=== PATIENT | male | born 1970 | race Caucasian/White ===

== ENCOUNTER 2018-06-28 13:38 | Inpatient (IN) | payer BC ==
[~2018-06-28] VITALS: Ht 175.3 cm; Wt 96.6 kg
[2018-06-28 13:45] VITALS: BP 137/72
[2018-06-28 14:13] LABS: BASOPHILS % (AUTO) 0 % (0-10); EOSINOPHILS # (AUTO) 0.1 10^3/uL (0.0-0.3); EOSINOPHILS % (AUTO) 1 % (0-10); HEMATOCRIT 38 % (40-54); HEMOGLOBIN 13.1 G/DL (13.3-17.7); LYMPHOCYTES % (AUTO) 9 % (12-44); MEAN CORPUSCULAR HEMOGLOBIN 31 PG (25-34); MEAN CORPUSCULAR HGB CONC 34 G/DL (32-36); MEAN CORPUSCULAR VOLUME 90 FL (80-99); MEAN PLATELET VOLUME 9.1 FL (7.4-10.4); MONOCYTES # (AUTO) 1.1 X 10^3 (0.0-1.0); MONOCYTES % (AUTO) 9 % (0-12); NEUTROPHILS # (AUTO) 9.8 X 10^3 (1.8-7.8); NEUTROPHILS % (AUTO) 82 % (42-75); PLATELET COUNT 215 10^3/uL (130-400); RED BLOOD COUNT 4.26 10^6/uL (4.35-5.85)
[2018-06-28] MEDS ORDERED: CATHETER FLUSH 10 ML SYR IV PRN (14:15)
[2018-06-28] MEDS ORDERED: D5 LR IV SOLUTION 1,000 ML IV SCH (14:15)
[2018-06-28] MEDS ORDERED: ONDANSETRON 4 MG/2 ML (SDV) Z0FRAN IV PRN (14:15)
[2018-06-28] MEDS ORDERED: morphine INJ 10 MG/ML 1ML (SYR OR VIAL) IVP NR (14:30)
[2018-06-28 14:36] LABS: ALANINE AMINOTRANSFERASE 24 U/L (0-55); ALBUMIN 4.2 GM/DL (3.2-4.5); ALKALINE PHOSPHATASE 39 U/L (40-136); BILIRUBIN,TOTAL 0.9 MG/DL (0.1-1.0); BUN/CREATININE RATIO 13; CALCIUM 9.2 MG/DL (8.5-10.1); CARBON DIOXIDE 27 MMOL/L (21-32); CHLORIDE 104 MMOL/L (98-107); CREATININE SERUM 1.18 MG/DL (0.60-1.30); GFR ESTIMATED > 60; GLUCOSE 115 MG/DL (70-105); POTASSIUM 3.8 MMOL/L (3.6-5.0); SODIUM 139 MMOL/L (135-145); TOTAL PROTEIN 6.2 GM/DL (6.4-8.2)
[2018-06-28] MEDS ORDERED: GUAI600T43 PO (15:11)
[2018-06-28] MEDS ORDERED: INDO75CA3 PO (15:11)
[2018-06-28] MEDS ORDERED: IRBE300T18 PO (15:11)
[2018-06-28] MEDS ORDERED: PSEU30TA35 PO (15:11)
[2018-06-28] MEDS ORDERED: SILD100T PO (15:11)
[2018-06-28] MEDS ORDERED: FLUT16SP22 NS (15:11)
[2018-06-28] MEDS ORDERED: ATOR80TA76 PO (15:14)
[2018-06-28] MEDS ORDERED: ASPI-983 PO (15:14)
[2018-06-28] MEDS ORDERED: NUGENIX PO (15:17)
--- NOTE | 2018-06-28 15:29 | Diagnostic Imaging Report ---
PROCEDURE: CT abdomen and pelvis with contrast, rule out appendicitis. TECHNIQUE: Multiple contiguous axial images were obtained through the abdomen and pelvis after the administration of intravenous contrast. INDICATION: Right lower quadrant pain. FINDINGS: The appendix arises off the posterior margin of the caudal pole of the cecum and is then oriented inferiorly. It is irregular and there is periappendiceal edema. No abscess or drainable fluid collection. There is a trace amount of pelvic free fluid at the midline dependent pelvis. Appendiceal diameter is maximal 15 mm at a level where its jean are not clearly defined. While no free air or extraluminal gas can be identified, its perforation could not be excluded. The urinary tracts are unobstructed. Mild hepatic steatosis noted. The gallbladder, bile ducts, spleen, adrenals, and pancreas are all negative. There is a small hiatal hernia. There is no bowel obstruction. IMPRESSION: Findings most consistent with appendicitis with trace pelvic free fluid. No loculated collection or drainable abscess. The dilated appendix shows ill definition of its jean at the level of maximal distention and mural integrity could not be confirmed. Again, no free air could be identified however. No resultant bowel obstruction. Remaining structures nonacute. Dictated by: Dictated on workstation # [id number]
[2018-06-28 16:00] VITALS: BP 107/61
[2018-06-28] MEDS ORDERED: morphine INJ 4 MG/ML 1 ML (VIAL/SYRINGE) IVP PRN (16:45)
--- NOTE | 2018-06-28 16:48 | History & Physical-Hospitalist ---
History of Present Illness HPI/Chief Complaint Mr. Salas is a 47-year-old white male who was woken from sleep with periumbilical crampy abdominal pain around 330 a.m. He had some associated nausea. He was quite uncomfortable secondary to this discomfort which she reported then gravitated toward the right lower quadrant has some morning went on. He had no vomiting but did feel quite nauseated at times. He did have several formed stools without liquid blood bright red or melena with only minimal relief in his symptoms. He was in the office where he appeared to be in acute distress secondary to his abdominal discomfort. He's had no past history of appendicitis or appendectomy. He denied any associated flank pain. Did note some increasing urinary frequency without dysuria. He had been feeling well in his usual state of good health up until being awoken from sleep this morning. Date Seen 06/28/18 Time Seen by Provider: 12:00 Attending Physician Bright Lincoln MD PCP Bright Lincoln MD Referring Physician Date of Admission Jun 28, 2018 at 13:45 Home Medications & Allergies Home Medications Reviewed patient Home Medication Reconciliation performed by pharmacy medication reconciliations ear mold laboratory technician and/or nursing. Patients Allergies have been reviewed. Allergies Allergies Coded Allergies No Known Drug Allergies (Unverified06/28/18) Past Uxeaafk-Gjbdav-Xrobau Hx Past Med/Social Hx: Reviewed and Corrections made Patient Social History Marrital Status: Employed/Student: employed Alcohol Use: Occasionally Uses Alcohol Beverage of Choice: [place] Recreational Drug Use: No Smoking Status: Never a Smoker Physical Abuse Screen: No Sexual Abuse: No Recent Hopitalizations: No Immunizations Up To Date Date of Pneumonia Vaccine: Jul 23, 2011 Seasonal Allergies Seasonal Allergies: No Past Medical History History of Blood Disorders: No Family History Myocardial infarction 19 FATHER SINUS CANCER 19 MOTHER Review of Systems Constitutional: see HPI, chills; No diaphoresis, No dizziness, No fever, No malaise, No weakness, No weight gain, No weight loss, No other Cardiovascular: No chest pain, No edema, No Hx of Intervention, No palpitations , No syncope, No vascular heart diseas, No other Gastrointestinal: see HPI Genitourinary: see HPI Physical Exam Physical Exam Vital Signs Vital Signs - First Documented 06/28/18 13:45 Temp 99.6 Pulse 80 Resp 18 B/P (MAP) 137/72 (93) Pulse Ox 98 O2 Delivery Room Air Capillary Refill : Height, Weight, BMI Height: 5'9.00" Weight: 213lbs. 0.7oz. 96.851698um; 31.5 BMI Method: General Appearance: WD/WN, Moderate Distress HEENT: PERRL/EOMI, Normal ENT Inspection Neck: Full Range of Motion, Normal Inspection, Non Tender, Supple, Carotid Bruit Respiratory: Chest Non Tender, Lungs Clear, Normal Breath Sounds, No Accessory Muscle Use, No Respiratory Distress Cardiovascular: Regular Rate, Rhythm, No Edema, No Gallop, No JVD, No Murmur, Normal Peripheral Pulses Gastrointestinal: Soft, Distended (Mild), Guarding (Right lower quadrant), Other (Abdomen soft mildly distended bowel sounds present but hypoactive no mass or organomegaly noted no rebound but there is right lower quadrant guarding to palpation.) Extremity: Normal Inspection, Normal Range of Motion, Non Tender, No Pedal Edema Neurologic/Psychiatric: Alert, Oriented x3 Results Results/Procedures Labs Laboratory Tests 06/28/18 14:10 Patient resulted labs reviewed. Assessment/Plan Admission Diagnosis A/P 1. History of physical examination highly suspicious for acute appendicitis. Discussed my concerns with Dr. Aguilar and the patient is being admitted for CT scan of the abdomen and pelvis per acute appendicitis protocol. Will initiate IV fluids and obtain a CBC and a chemistry panel with when necessary anti-medic's and pain medication per Dr. Aguilar after his evaluation. Admission Status: Inpatient Order (span 2 midnights) Reason for Inpatient Admission: See admission diagnosis Clinical Quality Measures DVT/VTE Risk/Contraindication: Risk Factor Score Per Nursin RFS Level Per Nursing on Admit: 2=Moderate BRIGHT LINCOLN MD Jun 28, 2018 16:48
--- NOTE | 2018-06-28 16:57 | Consultation ---
History of Present Illness History of Present Illness Patient Consulted On(elpidio/time) 06/28/18 16:51 Time Seen by Provider: 16:03 History of Present Illness Surgery asked to consult regarding possible appendicitis. HPI per IM: Mr. Salas is a 47-year-old white male who was woken from sleep with periumbilical crampy abdominal pain around 330 a.m. He had some associated nausea. He was quite uncomfortable secondary to this discomfort which she reported then gravitated toward the right lower quadrant has some morning went on. He had no vomiting but did feel quite nauseated at times. He did have several formed stools without liquid blood bright red or melena with only minimal relief in his symptoms. He was in the office where he appeared to be in acute distress secondary to his abdominal discomfort. He's had no past history of appendicitis or appendectomy. He denied any associated flank pain. Did note some increasing urinary frequency without dysuria. He had been feeling well in his usual state of good health up until being awoken from sleep this morning. Pt states pain is a 4 out of 10, now after pain meds, but was 7-8 out of 10 at its worst. He describes pain as sharp and crampy, worse with movement. Allergies and Home Medications Allergies Coded Allergies: No Known Drug Allergies (Unverified , 06/28/18) Home Medications Aspirin 81 Mg Tablet.dr, 81 MG PO DAILY, (Reported) Atorvastatin Calcium 80 Mg Tablet, 80 MG PO DAILY, (Reported) Fluticasone Propionate 16 Gm [place].susp, 1 SPRAYS NS BID, (Reported) Guaifenesin 600 Mg Tab.er.12h, 600 MG PO BID PRN for CONGESTION, (Reported) Indomethacin 75 Mg Capsule.er, 75 MG PO DAILY, (Reported) Irbesartan 300 Mg Tablet, 300 MG PO DAILY, (Reported) Sildenafil Citrate 100 Mg Tablet, 50-100 MG PO UD PRN for ED, (Reported) [Nugenix] , 4 CAP PO DAILY, (Reported) Patient Home Medication List Home Medication List Reviewed: Yes Past Cfdopbd-Fzvbbk-Tgvmvf Hx Patient Social History Alcohol Use: Occasionally Uses Recreational Drug Use: No Smoking Status: Never a Smoker Recent Hopitalizations: No Physical Abuse Screen: No Sexual Abuse: No Immunizations Up To Date Date of Pneumonia Vaccine: Jul 23, 2011 Seasonal Allergies Seasonal Allergies: No Surgeries History of Surgeries: Yes Surgeries: Orthopedic (2 shoulder surgeries) Respiratory Respiratory Disorders: Pneumonia Cardiovascular History of Cardiac Disorders: No Neurological History of Neurological Disord: No Reproductive System Hx Reproductive Disorders: No Sexually Transmitted Disease: No HIV/AIDS: No Genitourinary History of Genitourinary Disor: No Gastrointestinal History of Gastrointestinal Di: No Musculoskeletal History of Musculoskeletal Dis: Yes Endocrine History of Endocrine Disorders: No HEENT History of HEENT Disorders: Yes (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 ") Loss of Vision: Left Hearing Impairment: Denies Cancer History of Cancer: No Psychosocial History of Psychiatric Problem: No Integumentary History of Skin or Integumenta: No Blood Transfusions History of Blood Disorders: Yes (pt was told he has "thick" blood, currently being worked up by Auditing Coder) Family Medical History Significant Family History: Heart Disease, Cancer Family Medial History: Myocardial infarction 19 FATHER SINUS CANCER 19 MOTHER Review of Systems-General Constitutional: chills, diaphoresis, weakness EENTM: blurred vision; No hearing loss, No mouth pain, No mouth swelling, No epistaxis, No throat swelling Respiratory: No cough, No dyspnea on exertion, No hemoptysis Cardiovascular: No chest pain, No edema, No palpitations Gastrointestinal: abdominal pain (RLQ); No diarrhea, No hematemesis, No melena ; nausea, vomiting Genitourinary: No dysuria, No frequency, No hematuria Musculoskeletal: No back pain, No joint pain, No muscle stiffness Skin: No change in color, No change in hair/nails Psychiatric/Neurological: Denies Anxiety, Denies Depressed, Denies Seizure, Denies Tremors Other pt denies any abnormal bruising or bleeding, but recently has been told he may have a clotting disorder. Denies any heat or cold intolerance Physical Exam-General Problems Physical Exam Vital Signs Vital Signs - First Documented 06/28/18 13:45 Temp 99.6 Pulse 80 Resp 18 B/P (MAP) 137/72 (93) Pulse Ox 98 O2 Delivery Room Air Capillary Refill : General Appearance: WD/WN, mild distress Eyes: Bilateral Eye PERRL, Bilateral Eye EOMI HEENT: pharynx normal; No scleral icterus (R), No scleral icterus (L), No pale conjunctivae (R), No pale conjunctivae (L) Neck: non-tender, full range of motion, supple, normal inspection Respiratory: chest non-tender, lungs clear, normal breath sounds, no respiratory distress, no accessory muscle use Cardiovascular: regular rate, rhythm, no edema, no murmur Gastrointestinal: normal bowel sounds, soft, no organomegaly, guarding ( voluntary to deep palpation), tenderness (RLQ) Rectal: deferred Back: no CVA tenderness, no vertebral tenderness Extremities: normal range of motion, non-tender, normal inspection, no pedal edema, no calf tenderness Neurologic/Psychiatric: bioinformatics software engineer II-XII nml as tested, no motor/sensory deficits, alert, normal mood/affect, oriented x 3 Skin: normal color, warm/dry Lymphatic: no adenopathy (neck, axilla or groin) Data Review Labs Laboratory Tests 06/28/18 14:10: White Blood Count 12.0H, Red Blood Count 4.26L, Hemoglobin 13.1L, Hematocrit 38L , Mean Corpuscular Volume 90, Mean Corpuscular Hemoglobin 31, Mean Corpuscular Hemoglobin Concent 34, Red Cell Distribution Width 13.0, Platelet Count 215, Mean Platelet Volume 9.1, Neutrophils (%) (Auto) 82H, Lymphocytes (%) (Auto) 9L , Monocytes (%) (Auto) 9, Eosinophils (%) (Auto) 1, Basophils (%) (Auto) 0, Neutrophils # (Auto) 9.8H, Lymphocytes # (Auto) 1.0, Monocytes # (Auto) 1.1H, Eosinophils # (Auto) 0.1, Basophils # (Auto) 0.0, Sodium Level 139, Potassium Level 3.8, Chloride Level 104, Carbon Dioxide Level 27, Anion Gap 8, Blood Urea Nitrogen 15, Creatinine 1.18, Estimat Glomerular Filtration Rate > 60, BUN/ Creatinine Ratio 13, Glucose Level 115H, Calcium Level 9.2, Corrected Calcium 9.0, Total Bilirubin 0.9, Aspartate Amino Transf (AST/SGOT) 18, Alanine Aminotransferase (ALT/SGPT) 24, Alkaline Phosphatase 39L, Total Protein 6.2L, Albumin 4.2 Assessment/Plan Assessment/Plan Assessment/Plan Acute appendicitis Plan is IV fluids, pain control, anti-emetics and will take pt to OR. CT read by radiologist as acute appendicitis. Discussed the surgery with the pt; risks and complications not limited to pain, bleeding, infection, scar, damage to bowel and need for further procedure. I also discussed with the pt and his that if he does in fact have a clotting disorder he will be at increased risk to CVT and/or embolism because of the surgery. However, he does have to have the surgery. I had to evaluate pt and then explain risks of surgery to pt. Clinical Quality Measures DVT/VTE Risk/Contraindication: Risk Factor Score Per Nursin RFS Level Per Nursing on Admit: 2=Moderate KELLY HANLEY DO Jun 28, 2018 16:57
[2018-06-28] MEDS ORDERED: LIDOCAINE/EPI 1%-1:200,000 (XYLOCAINE) 10 ML VIAL ONE (17:27)
[2018-06-28] MEDS ORDERED: proPOfol 200 MG/20 ML (DIPRIVAN) VIAL IV ONE (17:29)
[2018-06-28] MEDS ORDERED: LIDOCAINE PF 2% 5 ML (XYLOCAINE) VIAL ONE (17:29)
[2018-06-28] MEDS ORDERED: SEVOFLURANE (ULTANE) 15 ML INHAL SOLN ONE ×2 (17:29→18:36)
[2018-06-28] MEDS ORDERED: LACTATED RINGERS 1,000 ML IV ONE (17:29)
[2018-06-28] MEDS ORDERED: ROCURONIUM 10 MG/ML 5 ML SYRINGE IV ONE (17:29)
[2018-06-28] MEDS ORDERED: MIDAZOLAM 2 MG/2 ML (VERSED) VIAL ONE (17:29)
[2018-06-28] MEDS ORDERED: fentaNYL INJECTION 100 MCG/2 ML AMP ONE (17:29)
[2018-06-28] MEDS ORDERED: ceFAZolin 2 GM IV Premixed 50 ML IV NR (17:45)
[2018-06-28] MEDS ORDERED: LACTATED RINGERS 1,000 ML IV PRN (18:13)
[2018-06-28] MEDS ORDERED: HYDROmorphone 2 MG/ML VIAL (DILAUDID) IV ONE (18:15)
[2018-06-28] MEDS ORDERED: ONDANSETRON 4 MG/2 ML (SDV) Z0FRAN IVP PRN (18:15)
[2018-06-28] MEDS ORDERED: MEPERIDINE (DEMEROL) INJ 50 MG/ML IVP ONE (18:15)
[2018-06-28] MEDS ORDERED: morphine INJ 10 MG/ML 1ML (SYR OR VIAL) IVP ONE (18:15)
[2018-06-28] MEDS ORDERED: NEOSTIGMINE 1 MG/ML 5 ML SYRINGE ONE (18:21)
[2018-06-28] MEDS ORDERED: GLYCOPYRROLATE 0.2 MG/ML (ROBINUL) 2 ML VIAL ONE (18:21)
--- NOTE | 2018-06-28 18:40 | Progress Note-Post Operative ---
Post-Operative Progess Note Surgeon (s)/Make Up Operator (s) Surgeon KELLY HANLEY DO Make Up Operator: Ross Jiménez MSIII Pre-Operative Diagnosis Acute appy Post-Operative Diagnosis Same plus b/l IH Procedure & Operative Findings Date of Procedure 06/28/18 Procedure Performed/Findings Lap Appy Anesthesia Type GET Estimated Blood Loss Estimated blood loss (mL): scant Specimens/Packing Specimens Removed KELLY Oconnor DO Jun 28, 2018 18:40
[2018-06-28] MEDS ORDERED: HYDR-3820 PO (18:41)
--- NOTE | 2018-06-28 18:43 | Discharge Inst-Surgical ---
Discharge Inst-Surgical Depart Medication/Instructions New, Converted or Re-Newed RX: RX Given to Pt/Family Patient Instructions Follow up Appt: Make appointment for 1 week. Instructions: No lifting greater than 10 pounds. No strenuous activity. May shower in 24 hours, no tub bath or soaking. Use incentive spirometer at home as directed. No Smoking Skin/Wound Care: May remove bandages in am. You need to leave the Dermabond on over incision it will fall off on its own. Symptoms to Report: Appetite Changes, Extremity Discoloration, Numbness/Tingling, Swelling Increased , Bleeding Excessive, Eyesight Changes, Pain Increased, Urine Color Change, Constipation(Persistent), Fever over 101 degree F, Pain/Pressure in chest, Urinating Difficulty, Cough Up/Vomit Blood, Heart Beat Irreg/Pounding, Pain/ Pressure in jaw, Cramps in feet or legs, Lightheadedness, Pain/Pressure in shoulder, Diarrhea(Persistent), Memory Changes Suddenly, Questions/Concerns, Weight gain consecutive days, Dizziness/Fainting, Nausea/Vomiting, Shortness of Breath, Weight gain over 2 pounds If questions or concerns contact your physician Or seek help at emergency department. Activity Activity Instructions: Avoid Stress to Incision Driving Instructions: No Driving/Refer to Diet Discharge Diet: No Restrictions Diet After 24 Hours: Clear Liquid if Nauseous If Any Problems/Questions/Issu: Contact Your Physician, Go to Emergency Room Skin/Wound Care Infection Signs and Symptoms: Increased Redness, Foul Odor of Wound, Increased Drainage, Skin Itchy or Has a Rash, Increased Swelling, Temperature Above 101 F Wound Care Comment: Heating pad to shoulder or neck for pain tonight Bathing Instructions: Shower Stitches/[place]/Dermabond Dis: Dermabond Ice Pack: Ice On and Off Site (as needed for pain) KELLY HANLEY DO Jun 28, 2018 18:42
[2018-06-28 20:00] VITALS: BP 116/64
[2018-06-28 20:25] VITALS: BP 116/64
[2018-06-28 21:55] VITALS: BP 104/60
[2018-06-28 22:00] VITALS: BP 104/60
--- NOTE | 2018-06-29 02:47 | OPERATIVE REPORT ---
DATE OF SERVICE: 06/28/2018 PREOPERATIVE DIAGNOSIS: Acute appendicitis. POSTOPERATIVE DIAGNOSES: Acute appendicitis, bilateral inguinal hernia. PROCEDURE: Laparoscopic appendectomy. SURGEON: Beto Amos DO. EVENING OR NIGHT NURSE SUPERVISOR: Ross Jiménez, medical student level 3. ANESTHESIA: General endotracheal tube. SPECIMEN: Appendix. BLOOD LOSS: Scant. FLUIDS: Per anesthesia. POSTOPERATIVE CONDITION: Stable. INDICATION FOR PROCEDURE: The patient is a 47-year-old male who came in and admitted to the hospital by Dr. Yen for right lower quadrant pain, suspected appendicitis. He had elevated white count and CAT scan showed acute appendicitis. FINDINGS: The patient had acute appendicitis. Pictures taken. PROCEDURE NOTE: After informed consent was obtained, the patient was brought to the operating room, placed on the table in supine position. He was sterilely prepped and draped in normal fashion. Local lidocaine was used to infiltrate the skin above the umbilicus. Made incision with #11 blade, carried down through the skin into the subcutaneous tissue, then deepened down through subcutaneous tissue with Bovie electrocautery down to the fascia. Fascia incised with Bovie electrocautery, then able to bluntly in the abdomen, swept a finger around, placed 0 Vicryl [id number] suture and placed an 11 mm trocar port under direct visualization. Created pneumoperitoneum and then placed 2 more ports in normal fashion using local lidocaine, 11 blade for stab incision and VersaStep system all done under direct vision, one suprapubically and one left lower quadrant. Once these were all put in, pneumoperitoneum created. The patient was placed slightly Trendelenburg and rotated to the left, able to move the terminal ileum out of the way and then found a tip of the appendix was very red and inflamed and then moved to the side and saw almost a necrotic appendix. Pictures were taken. Took pictures, also the patient has bilateral inguinal hernias. At this point, then started coming across the mesoappendix with the LigaSure, clamping, coagulating and transecting in this fashion coming all the way across. Transecting and coagulating the appendiceal artery and make coming across the appendix was only attached to the cecum, took a picture of this and then switched to 5 mm camera, brought an Endo-MULUGETA and placed across the base of appendix, clamped and fired, thereby transecting the appendix and then placed a bag in the abdomen, placed the appendix in the bag and then removed this through the supraumbilical incision, placed the port back in the abdomen, copiously irrigated with normal saline. There was some murky fluid, but it did not look like the appendix had perforated. Pictures were taken of this. Copiously irrigated with normal saline, suctioned this out, looked around, no other obvious pathology, but did not move all the intestine. At this point, then the patient was turned to the supine position, removed all ports under direct visualization, allowed pneumoperitoneum to escape, closed supraumbilical incision, closed the fascia with 0 Vicryl suture previously placed. Copiously irrigated all incisions with normal saline, then closed the 2 small 5 mm incisions with single interrupted 4-0 undyed Monocryl subcuticular stitch. Closed the supraumbilical incision with 3 interrupted 4-0 undyed Monocryl subcuticular stitches. Area was cleaned and dried and Dermabond placed as well as Band-Aids. The patient then transferred to recovery room in stable condition. Sponge and needle counts were correct at the end of the case. Job ID: [id number] DocumentID: [id number] Dictated Date: 06/29/2018 00:40:23 Curator Medical [employer] Date: 06/29/2018 02:46:44 Dictated By: BETO AMOS DO
--- NOTE | 2018-06-29 15:18 | Anesthesia-General Post-Op ---
General Patient Condition Mental Status/LOC: Same as Preop Cardiovascular: Satisfactory Nausea/Vomiting: Absent Respiratory: Satisfactory Pain: Controlled Complications: Absent Post Op Complications Complications None Follow Up Care/Instructions Patient Instructions None needed. Anesthesia/Patient Condition Patient Condition Patient was already D/C'd to home this morning. No anesthetic complications noted per RN. CHERELLE NAZARIO DO Jun 29, 2018 15:18
== END 2018-06-28 22:00 | disposition home or self-care (01) | DRG 343 ==
LOC: 4TH 13:45
PROVIDERS: ADMIT Internal Medicine; ATTEND Internal Medicine
PROC: 0DTJ4ZZ Resection of Appendix, Percutaneous Endoscopic Approach (ICD-10-PCS; principal; 2018-06-28 17:52)
DX: K35.80 Unspecified acute appendicitis (principal); K40.20 Bilateral inguinal hernia, without obstruction or gangrene, not specified as recurrent; I69.398 Other sequelae of cerebral infarction; H54.62 Unqualified visual loss, left eye, normal vision right eye
CPT/HCPCS: 36415; 74177; 80053; 85025; 87081

== ENCOUNTER → 2021-01-26 | Outpatient (CLI) | payer BC ==
[~2021-01-26] VITALS: Ht 173 cm; Wt 106.0 kg
[~2021-01-26] MED LIST: ACHYD1T PO; ASPI-1238 PO; ATOR80TA76 PO; BAMLANIVIMAB (NON FORM) 700 MG in NS (IVPB) 100 ML IV ONE; EPINEPHrine INJECTION 1 MG/ML AMP IM PRN; FLUT16SP22 NS; GUAI600T43 PO; INDO75CA3 PO; IRBE300T17 PO; NUGENIX PO; PS30T PO; SILD100T PO; diphenhydrAMINE 50 MG/ML INJ (BENADRYL) IV PRN
[2021-01-26 12:25] VITALS: BP 142/90
[2021-01-26 13:52] VITALS: BP 146/91
== END ==
LOC: INFUSION 12:29
PROVIDERS: ATTEND Nurse Practitioner Family
DX: Z23 Encounter for immunization (principal); U07.1 COVID-19

== ENCOUNTER 2021-08-04 13:17 | Outpatient (CLI) | payer BC ==
[~2021-08-04] VITALS: Ht 175.3 cm; Wt 106.0 kg
[~2021-08-04 13:17] MED LIST changes: -BAMLANIVIMAB (NON FORM) 700 MG in NS (IVPB) 100 ML IV ONE; -EPINEPHrine INJECTION 1 MG/ML AMP IM PRN; -diphenhydrAMINE 50 MG/ML INJ (BENADRYL) IV PRN
== END 2021-08-04 14:53 ==
LOC: PREOP 13:17
PROVIDERS: ATTEND Internal Medicine
DX: Z01.818 Encounter for other preprocedural examination (principal)

== ENCOUNTER 2021-08-13 07:22 | Day surgery (SDC) | payer BC ==
--- NOTE | 2021-08-05 07:10 | HISTORY AND PHYSICAL ---
DATE OF SERVICE: COLONOSCOPY HISTORY AND PHYSICAL HISTORY OF PRESENT ILLNESS: The patient is being set up for his first screening colonoscopy. He seemed to be of average risk as he is not aware of any family history for colon cancer. Denies abdominal pain, bright red blood per rectum, melena or change in bowel habit. PAST MEDICAL HISTORY: Significant for hyperlipidemia and insulin resistance. He is fully vaccinated for COVID and also had COVID diagnosed in January of this year for which he did receive bamlanivimab. He was vaccinated post-COVID with a Jeffrey and Jeffrey vaccine, was down for about 2 weeks, did not require hospitalization. He has been feeling well since that time. He has made some lifestyle change and has managed to drop nearly 12 pounds over the past 7 months for which he was commended. PHYSICAL EXAMINATION: GENERAL: Reveals a pleasant white male, appears to be in no acute distress. VITAL SIGNS: Blood pressure 120/92, weight 229.6 pounds. HEENT: Unremarkable. Ear canal did reveal bilateral cerumen. He underwent ear lavage with normal TMs and ear canals post-procedure. CHEST: Clear. CARDIOVASCULAR: Reveals regular rate and rhythm without S3 or S4. EXTREMITIES: Reveal no cyanosis, clubbing or edema. LABORATORY DATA: Blood tests were reviewed with the patient. Triglyceride level was still mildly elevated at 379 with LDL of 60 and HDL of 31 and fasting sugar was lowered due to weight loss of 109. ASSESSMENT AND PLAN: The patient was advised to add fish oil 2 g daily initially. Continue current lifestyle changes. We will see him back in six months for wellness evaluation. Chemistry panel, lipid panel, CBC and PSA. Prep instructions with Suprep kit were given and colonoscopy related questions were answered. Job ID: [id number] DocumentID: [id number] Dictated Date: 07/28/2021 16:59:13 Supervisor Laboratory Animal Facility Date: 07/28/2021 17:13:37 Dictated By: BRIGHT LINCOLN MD
[~2021-08-13] VITALS: Ht 175.3 cm; Wt 106.0 kg
[2021-08-13] VITALS (7 sets, daily range): BP systolic 99–110; BP diastolic 61–85
[2021-08-13] MEDS ORDERED: LACTATED RINGERS 1,000 ML IV STA (07:28)
[2021-08-13] MEDS ORDERED: LIDOCAINE JELLY 2% 6 ML SYRINGE MM PRN (07:30)
[2021-08-13] MEDS ORDERED: LACTATED RINGERS 1,000 ML IV ONE (07:30)
--- NOTE | 2021-08-13 08:06 | Pre-Op Note & Conscious Sedat ---
Pre-Operative Progress Note H&P Reviewed The H&P was reviewed, patient examined and no changes noted. Date H&P Reviewed: Aug 13, 2021 Time H&P Reviewed: 08:05 Conscious Sedation Pre-Proced ASA Score 2 For ASA 3 and 4: Consider anesthesia and medical clearance. Also, for patients with a history of failed moderate sedation consider anesthesia. Airway Lungs Heart ASA score ASA 1: a normal healthy patient ASA 2: a patient with a mild systemic disease (mid diabetes, controlled hypertension, obesity ASA 3: a patient with a severe systemic disease that limits activity (angina, COPD, prior Myocardial infarction) ASA 4: a patient with an incapacitating disease that is a constant threat to life (CHF, renal failure) ASA 5: a moribund patient not expected to survive 24 hrs. (ruptured aneurysm) ASA 6: a declared brain- patient whose organs are being harvested. For emergent operations, add the letter E after the classification Mallampati Classification Grade 3 Sedation Plan Analgesia, Amnesia, Plan communicated to team members, Discussed options with patient/fam, Discussed risks with patient/fam The patient is an appropriate candidate to undergo the planned procedure, sedation, and anesthesia. The patient immediately re-assessed prior to indication. BRIGHT LINCOLN MD Aug 13, 2021 08:06
[2021-08-13] MEDS ORDERED: PROPOFOL INJECTION 50 ML IV ONE (08:28)
[2021-08-13] MEDS ORDERED: MIDAZOLAM 2 MG/2 ML (VERSED) VIAL ONE (08:28)
--- NOTE | 2021-08-13 13:59 | OPERATIVE REPORT ---
DATE OF SERVICE: COLONOSCOPY SUMMARY INDICATION FOR THE PROCEDURE: Screening colonoscopy. The patient was placed in the left lateral decubitus position. Prior to undergoing colonoscopy, digital rectal evaluation was performed. Anal sphincter tone was normal and the perianal reflexes intact. Prostate is normal in size, anodular, nontender to digital inspection. No abnormalities were noted on digital inspection of anal canal or distal rectal vault. The colonoscope was and then inserted into the rectum and under direct visualization advanced to cecum. The cecum was identified by identification of the ileocecal valve and cecal strap. Quality of prep was fair. Some semi-solid stool in the cecum and ascending colon; otherwise good prep condition. FINDINGS: There was no evidence for internal or external hemorrhoids and the rectum was unremarkable. Present in the rectosigmoid junction were 2 diminutive 1 mm sessile hyperplastic appearing polyps. They were removed in their entirety via cold forceps with no subsequent blood loss. The sigmoid colon, descending colon, splenic flexure, transverse colon, hepatic flexure, ascending colon and cecum were otherwise unremarkable. ASSESSMENT: Normal colonoscopy to the cecum under prep conditions where there was some retained stool in the cecum and the ascending colon. Two diminutive hyperplastic polyps removed from the rectosigmoid junction with otherwise normal colonoscopy. Prostate was unremarkable to digital inspection. No evidence for internal or external hemorrhoids. We will advocate consideration for repeat screening colonoscopy in 10 years as long as family history remains negative for colon cancer. Job ID: [id number] DocumentID: [id number] Dictated Date: 08/13/2021 08:54:36 Staff Nurse [facility] Team Date: 08/13/2021 13:58:33 Dictated By: BRIGHT LINCOLN MD MTDD
--- NOTE | 2021-08-13 14:42 | Anesthesia-General Post-Op ---
MAC Patient Condition Mental Status/LOC: Same as Preop Cardiovascular: Satisfactory Nausea/Vomiting: Absent Respiratory: Satisfactory Pain: Controlled Complications: Absent Post Op Complications Complications None Follow Up Care/Instructions Patient Instructions None needed. Anesthesiology Discharge Order Discharge Order Patient is doing well, no complaints, stable vital signs, no apparent adverse anesthesia problems. No complications reported per nursing. JHONATHAN CORDOVA CRNA Aug 13, 2021 14:42
== END 2021-08-13 09:45 | disposition home or self-care (01) ==
LOC: ENDO 07:22
PROVIDERS: ATTEND Internal Medicine
DX: Z12.11 Encounter for screening for malignant neoplasm of colon (principal); K63.5 Polyp of colon; E78.5 Hyperlipidemia, unspecified; E88.81 Metabolic syndrome and other insulin resistance; I10 Essential (primary) hypertension; K21.9 Gastro-esophageal reflux disease without esophagitis; Z86.73 Personal history of transient ischemic attack (TIA), and cerebral infarction without residual deficits; Z86.16 Personal history of COVID-19; Z79.82 Long term (current) use of aspirin; Z79.899 Other long term (current) drug therapy